=== PATIENT | female | born 1960 | race African-American/Black ===

== ENCOUNTER 2025-08-24 10:52 | Inpatient (IN) | payer OTHER, MEDICARE ==
[~2025-08-24] VITALS: Ht 154.9 cm; Wt 65.8 kg
[2025-08-24 10:56] VITALS: O2SAT 100
[2025-08-24] MEDS: METHYLPREDNISOLONE SOD SUCC 125MG/2ML (ACT-O-VIAL) IV ONE (11:30)
[2025-08-24 11:42] LABS: BASOPHILS % 0.5 % (0.0-2.0); EOSINOPHILS % 2.1 % (0.0-5.0); HEMATOCRIT. 33.0 % (36.0-48.0); HEMOGLOBIN. 10.8 g/dL (12.0-16.0); LYMPHOCYTES % 43.9 % (20.0-50.0); MEAN PLATELET VOLUME 7.5 fl (7.4-10.4); MONOCYTES % 10.7 % (2.0-8.0); NEUTROPHILS % 42.8 % (40.0-76.0); PLATELET 294 x1000/uL (130-400); RED BLOOD CELL COUNT 3.91 mill/uL (4.2-5.4); RED CELL DISTRIBUTION WIDTH 15.9 % (11.6-14.6)
[2025-08-24 11:55] LABS: CREATININE 0.6 mg/dL (0.6-1.0); PROTEIN TOTAL 7.7 g/dL (6.0-8.3); UREA NITROGEN BLOOD 12 mg/dL (9-23)
[2025-08-24 11:57] LABS: ASPARTATE AMINOTRANSFERASE 18 IU/L (<34); BILIRUBIN DIRECT < 0.1 mg/dL (<=3.0); BILIRUBIN TOTAL 0.3 mg/dL (0.1-1.0)
[2025-08-24 14:03] VITALS: BP 157/69; PULSE 69; RESP 18; TEMP 36.6404
[2025-08-24 16:00] VITALS: BP 154/65; PULSE 79; RESP 18; TEMP 36.8; O2SAT 98
[2025-08-24] MEDS ORDERED: MAGNESIUM/ALUMINUM HYDROXIDE/SIMETHICONE 30ML UDC PO PRN (16:30)
[2025-08-24] MEDS ORDERED: ONDANSETRON HCL 4MG/2ML INJ IV PRN (16:30)
[2025-08-24] MEDS ORDERED: GUAIFENESIN 200MG/10ML SUGAR FREE UDC PO PRN (16:30)
[2025-08-24] MEDS ORDERED: ACETAMINOPHEN 325MG TABLET PO PRN (16:30)
[2025-08-24] MEDS ORDERED: IPRATROPIUM/ALBUTEROL 0.5-3(2.5)MG/3ML NEB HHN PRN (16:30)
[2025-08-24] MEDS: ENOXAPARIN 40MG/0.4ML SYR SUBCUT SCH (17:56)
[2025-08-24] MEDS: ACETAMINOPHEN 325MG TABLET PO PRN (17:57)
[2025-08-24] MEDS: CLONIDINE 0.1MG TABLET PO PRN (17:58)
[2025-08-24] MEDS ORDERED: DICLOFENAC SODIUM 75MG DR TABLET PO PRN (18:15)
[2025-08-24] MEDS ORDERED: METH2.5T PO (19:28)
[2025-08-24] MEDS ORDERED: NAPR220C15 PO (19:28)
[2025-08-24] MEDS ORDERED: PRED2.5T4 MT (19:28)
[2025-08-24 20:00] VITALS: BP 109/61; PULSE 88; RESP 18; TEMP 36.3; O2SAT 97
[2025-08-24] MEDS: PANTOPRAZOLE 40MG DR TABLET PO SCH (21:44)
[2025-08-24 22:32] LABS: FOLIC ACID (FOLATE) SERUM > 20.00 ng/mL (>5.38)
[2025-08-24 22:34] LABS: VITAMIN B12 SERUM 447 pg/mL (211-911)
[2025-08-25] VITALS: BP 127/66; PULSE 70; RESP 18; TEMP 36.3; O2SAT 99
[2025-08-25 04:00] VITALS: BP 109/50; PULSE 67; RESP 18; TEMP 36.5; O2SAT 95
[2025-08-25 08:00] VITALS: BP 123/56; PULSE 62; RESP 17; TEMP 36.1; O2SAT 98
[2025-08-25 08:28] LABS: BASOPHILS % 0.1 % (0.0-2.0); EOSINOPHILS % 0.0 % (0.0-5.0); HEMATOCRIT. 30.6 % (36.0-48.0); HEMOGLOBIN. 10.1 g/dL (12.0-16.0); LYMPHOCYTES % 30.0 % (20.0-50.0); MEAN PLATELET VOLUME 8.0 fl (7.4-10.4); MONOCYTES % 12.6 % (2.0-8.0); NEUTROPHILS % 57.3 % (40.0-76.0); PLATELET 309 x1000/uL (130-400); RED BLOOD CELL COUNT 3.64 mill/uL (4.2-5.4); RED CELL DISTRIBUTION WIDTH 15.6 % (11.6-14.6)
[2025-08-25] MEDS: FOLIC ACID 1MG TABLET PO SCH (08:48)
[2025-08-25] MEDS: FERROUS SULFATE 325MG TABLET PO SCH (08:49)
[2025-08-25] MEDS: ASPIRIN 81MG EC TABLET PO SCH (08:49)
[2025-08-25 09:18] LABS: CREATININE 0.7 mg/dL (0.6-1.0); UREA NITROGEN BLOOD 21 mg/dL (9-23)
[2025-08-25] MEDS ORDERED: FERROUS SULFATE 325MG TABLET PO SCH (10:30)
[2025-08-25 12:00] VITALS: BP 141/45; PULSE 69; RESP 17; TEMP 36.4; O2SAT 98
[2025-08-25 16:00] VITALS: BP 116/65; PULSE 57; RESP 18; TEMP 36.6; O2SAT 100
[2025-08-25 17:29] LABS: TROPONIN I HIGH SENSITIVITY < 4 ng/L (3.0-34)
[2025-08-25] MEDS: HYDROXYCHLOROQUINE SULFATE 200MG TABLET PO SCH (22:09)
[2025-08-25] MEDS: DICLOFENAC SODIUM 75MG DR TABLET PO SCH (22:09)
[2025-08-25] MEDS: BUPROPION HCL 75MG TABLET PO SCH (22:09)
[2025-08-25] MEDS: PREGABALIN 75MG CAPSULE PO SCH (22:10)
[2025-08-25] MEDS: PILOCARPINE HCL 2% OPHTH DROPS 15ML BOTHEYE SCH (22:45)
[2025-08-25] MEDS: PILOCARPINE HCL 5MG TABLET PO SCH (22:45)
[2025-08-26] MEDS: METHYLPREDNISOLONE SOD SUCC 40MG/ML (ACT-O-VIAL) IV SCH (00:39)
[2025-08-26 04:00] VITALS: BP 131/56; PULSE 53; RESP 18; TEMP 36.2; O2SAT 99
[2025-08-26 08:00] VITALS: BP 165/75; PULSE 64; RESP 15; TEMP 36.4; O2SAT 96
[2025-08-26] MEDS: METHOTREXATE SODIUM 2 . 5MG TABLET PO SCH (08:40)
[2025-08-26] MEDS: DOCUSATE SODIUM 100MG CAPSULE PO PRN (08:41)
[2025-08-26 08:54] LABS: T4 FREE 1.2 ng/dL (0.89-1.76)
[2025-08-26 12:00] VITALS: BP 111/54; PULSE 62; RESP 15; TEMP 36.3; O2SAT 96
[2025-08-26 16:00] VITALS: BP 108/54; PULSE 71; RESP 16; TEMP 36.4; O2SAT 97
[2025-08-26 20:00] VITALS: BP 126/56; PULSE 66; RESP 20; TEMP 36.3; O2SAT 99
[2025-08-27] VITALS: BP 111/53; PULSE 64; RESP 19; TEMP 36.4; O2SAT 98
[2025-08-27 04:00] VITALS: BP 117/52; PULSE 66; RESP 19; TEMP 36.3; O2SAT 98
[2025-08-27 06:03] LABS: CREATININE 0.7 mg/dL (0.6-1.0)
[2025-08-27 06:04] LABS: UREA NITROGEN BLOOD 20 mg/dL (9-23)
[2025-08-27 06:06] LABS: PHOSPHORUS 2.9 mg/dL (2.5-4.9)
[2025-08-27 06:12] LABS: BASOPHILS % 0.1 % (0.0-2.0); EOSINOPHILS % 0.0 % (0.0-5.0); HEMATOCRIT. 31.4 % (36.0-48.0); HEMOGLOBIN. 10.3 g/dL (12.0-16.0); LYMPHOCYTES % 14.3 % (20.0-50.0); MEAN PLATELET VOLUME 8.2 fl (7.4-10.4); MONOCYTES % 3.7 % (2.0-8.0); NEUTROPHILS % 81.9 % (40.0-76.0); PLATELET 317 x1000/uL (130-400); RED BLOOD CELL COUNT 3.73 mill/uL (4.2-5.4); RED CELL DISTRIBUTION WIDTH 15.8 % (11.6-14.6)
[2025-08-27 08:00] VITALS: BP 136/66; PULSE 69; RESP 15; TEMP 36.5; O2SAT 98
[2025-08-27 09:07] LABS: COMPLEMENT C3 152 mg/dL (82-167); COMPLEMENT C4 23 mg/dL (12-38); G6PD QUANTITATIVE 356 (127-427); G6PD RBC 4.28 x10E6/uL (3.77-5.28)
[2025-08-27 12:00] VITALS: BP 122/51; PULSE 77; RESP 16; TEMP 36.6; O2SAT 100
[2025-08-27 16:00] VITALS: BP 125/51; PULSE 85; RESP 17; TEMP 36.2; O2SAT 100
[2025-08-27 20:00] VITALS: BP 130/51; PULSE 69; RESP 18; TEMP 35.8; O2SAT 95
[2025-08-28] VITALS (7 sets, daily range): BP systolic 104–162; BP diastolic 47–82; PULSE 55–82; RESP 16–19; TEMP 36.1–36.4; O2SAT 95–98
[2025-08-28 15:10] LABS: ATYPICAL P-ANCA <1:20 titer (Neg:<1:20); CYTOPLASMIC C-ANCA <1:20 titer (Neg:<1:20); PERINUCLEAR P-ANCA <1:20 titer (Neg:<1:20)
[2025-08-29] VITALS: BP 109/53; PULSE 71; RESP 15; TEMP 36.3; O2SAT 99
[2025-08-29 04:00] VITALS: BP 138/77; PULSE 77; RESP 18; TEMP 36.6; O2SAT 97
[2025-08-29 08:00] VITALS: BP 152/57; PULSE 54; RESP 15; TEMP 37.1; O2SAT 100
[2025-08-29 08:39] LABS: BASOPHILS % 0.1 % (0.0-2.0); EOSINOPHILS % 0.0 % (0.0-5.0); HEMATOCRIT. 34.7 % (36.0-48.0); HEMOGLOBIN. 11.3 g/dL (12.0-16.0); LYMPHOCYTES % 17.3 % (20.0-50.0); MEAN PLATELET VOLUME 9.1 fl (7.4-10.4); MONOCYTES % 2.8 % (2.0-8.0); NEUTROPHILS % 79.8 % (40.0-76.0); PLATELET 294 x1000/uL (130-400); RED BLOOD CELL COUNT 4.14 mill/uL (4.2-5.4); RED CELL DISTRIBUTION WIDTH 15.9 % (11.6-14.6)
[2025-08-29 08:58] LABS: CREATININE 0.9 mg/dL (0.6-1.0)
[2025-08-29 08:59] LABS: UREA NITROGEN BLOOD 24 mg/dL (9-23)
[2025-08-29 12:00] VITALS: BP 136/61; PULSE 63; RESP 17; TEMP 36.4
[2025-08-29 13:11] LABS: ANTI-MYELOPEROXIDASE AB < 0.2 units (0.0-0.9); ANTI-PROTEINASE 3 ABS < 0.2 units (0.0-0.9)
[2025-08-29 16:00] VITALS: BP 137/67; PULSE 74; RESP 17; TEMP 36.3; O2SAT 99
[2025-08-29 19:06] LABS: ALDOLASE 7.2 U/L (3.3-10.3); ANGIOTENSION CONVERTING ENZYME 88 U/L (14-82)
[2025-08-29 20:00] VITALS: BP 133/60; PULSE 61; RESP 18; TEMP 36.4; O2SAT 98
[2025-08-30] VITALS: BP 121/49; PULSE 71; RESP 18; TEMP 36.4; O2SAT 97
[2025-08-30 04:00] VITALS: BP 134/44; PULSE 66; RESP 18; TEMP 36.2
[2025-08-30 08:00] VITALS: BP 138/61; PULSE 68; RESP 17; TEMP 35.8; O2SAT 100
[2025-08-30 12:00] VITALS: BP 129/63; PULSE 73; RESP 18; TEMP 36.2; O2SAT 98
[2025-08-30 16:00] VITALS: BP 136/56; PULSE 71; RESP 18; TEMP 36.4; O2SAT 98
[2025-08-30 16:22] VITALS: BP 136/56; PULSE 71; RESP 18; TEMP 97.5
[2025-08-30 17:07] LABS: ANA IFA Negative (.)
== END 2025-08-30 17:51 | DRG 547 ==
LOC: ER 10:52 → 6EST 12:38 → EDBEDREQ 12:42 → EDBEDREQTM 12:42 → 6WST 08-25 22:53 → 7EST 08-29 11:45
PROVIDERS: ADMIT Internal Medicine; ATTEND Internal Medicine
PROC: 3E0U33Z Introduction of Anti-inflammatory into Joints, Percutaneous Approach (ICD-10-PCS; principal; 2025-08-27)
PROC: 3E0U33Z Introduction of Anti-inflammatory into Joints, Percutaneous Approach (ICD-10-PCS; 2025-08-27)
PROC: 3E0U33Z Introduction of Anti-inflammatory into Joints, Percutaneous Approach (ICD-10-PCS; 2025-08-27)
PROC: 3E0U3BZ Introduction of Anesthetic Agent into Joints, Percutaneous Approach (ICD-10-PCS; 2025-08-27)
PROC: 3E0U3BZ Introduction of Anesthetic Agent into Joints, Percutaneous Approach (ICD-10-PCS; 2025-08-27)
PROC: 3E0U3BZ Introduction of Anesthetic Agent into Joints, Percutaneous Approach (ICD-10-PCS; 2025-08-27)
DX: M06.821 Other specified rheumatoid arthritis, right elbow (principal); D63.8 Anemia in other chronic diseases classified elsewhere; I10 Essential (primary) hypertension; M35.00 Sjogren syndrome, unspecified; M15.9 Polyosteoarthritis, unspecified; M79.7 Fibromyalgia; Z88.0 Allergy status to penicillin; M06.811 Other specified rheumatoid arthritis, right shoulder; Z74.09 Other reduced mobility; M06.861 Other specified rheumatoid arthritis, right knee
CPT/HCPCS: 36415; 71045; 72040; 73030; 73070; 73100; 73120; 80048; 80076; 82085; 82164; 82550; 82607; 82728; 82746; 82955; 83520; 83540; 83550; 83735; 84100; 84439; 84484; 85025; 85041; 85651; 86141; 86160; 86256; 86332; 86431; 93005; 93970; 96372; 96374; 97162; 97166; 97530; 97535; 99285; A4606; J1650; J2919; J8610